=== PATIENT | male | born 1955 | race Native Hawaiian/Other Pacific Islander ===

== ENCOUNTER 2019-05-30 13:58 | Emergency (ER) | payer BC ==
[~2019-05-30] VITALS: Ht 182.9 cm; Wt 115.7 kg
[2019-05-30 14:17] VITALS: TEMP 97.9
[2019-05-30 18:45] VITALS: BP 116/75
== END 2019-05-30 19:30 | disposition home or self-care (01) ==
LOC: ED 13:58
DX: S46.912A Strain of unspecified muscle, fascia and tendon at shoulder and upper arm level, left arm, initial encounter (principal); V89.2XXA Person injured in unspecified motor-vehicle accident, traffic, initial encounter
CPT/HCPCS: 96372; 99283; J1885; J2360

== ENCOUNTER 2020-12-27 16:15 | Outpatient (CLI) | payer BC, OTHER | END 2020-12-27 21:18 | disposition home or self-care (01) | LOC: INF 16:15 | PROVIDERS: ATTEND Internal Medicine | DX: Z23 Encounter for immunization (principal) | CPT/HCPCS: 96372 ==

== ENCOUNTER 2021-01-23 15:12 | Outpatient (CLI) | payer BC, OTHER | END 2021-01-23 21:35 | disposition home or self-care (01) | LOC: INF 15:12 | PROVIDERS: ATTEND Internal Medicine | DX: Z23 Encounter for immunization (principal) | CPT/HCPCS: 96372 ==

== ENCOUNTER 2023-03-19 08:12 | Outpatient (CLI) | payer BC | END 2023-03-19 19:00 | disposition home or self-care (01) | LOC: LABW 08:12 | PROVIDERS: ATTEND Orthopaedic Surgery | DX: E55.9 Vitamin D deficiency, unspecified (principal) | CPT/HCPCS: 36415; 82306 ==